=== PATIENT | male | born 1945 | race Caucasian/White ===

== ENCOUNTER 2018-06-21 06:58 | Outpatient (RCR) | payer MEDICARE, BC ==
[~2018-06-21 06:58] MED LIST: ASPIR 8181 MG PO; GLIPIZIDE5 MG PO; KOMBIGLYZE XR1 EAC1 PO; LISINOPRIL10 MG PO; PLAVIX75 MG PO; PRAVACHOL40 MG PO; PROTONIX40 MG PO; TOPROL XL25 MG PO; VERAPAMIL ER240 M1 PO
== END 2018-06-23 ==
LOC: PT 06:58
PROVIDERS: ATTEND Specialist
DX: M75.42 Impingement syndrome of left shoulder (principal); M25.512 Pain in left shoulder; M62.81 Muscle weakness (generalized)

== ENCOUNTER 2018-07-22 07:00 | Outpatient (RCR) | payer MEDICARE, BC | END 2018-07-24 | LOC: PT 07:00 | PROVIDERS: ATTEND Specialist | DX: M75.42 Impingement syndrome of left shoulder (principal); M62.81 Muscle weakness (generalized) | CPT/HCPCS: 97139 ==

== ENCOUNTER → 2018-11-23 | Outpatient (CLI) | payer MEDICARE, BC ==
[~2018-11-23] MED LIST changes: +PROCARDIA XL90 MG PO
[2018-11-23 09:02] LABS: BASOPHILS # (AUTO) 0.1 (0.0-0.1); BASOPHILS % 0.8 % (0.0-1.0); EOSINOPHILS # (AUTO) 0.1 (0.0-0.4); EOSINOPHILS % 1.7 % (0.0-6.0); HEMATOCRIT 41.5 % (38.2-49.6); HEMOGLOBIN 14.6 g/dL (14.0-18.0); LYMPHOCYTES % 13.4 % (18.0-39.1); MEAN CORPUSCULAR HEMOGLOBIN 29.9 pg (28-32); MEAN CORPUSCULAR HGB CONC 35.2 g/dL (31-35); MONOCYTES # (AUTO) 0.7 (0.2-0.8); MONOCYTES % 9.7 % (4.4-11.3); NEUTROPHILS # (AUTO) 5.6 (2.1-6.9); PLATELET COUNT 228 x10e3/uL (140-360); RED BLOOD COUNT 4.88 x10e6/uL (4.3-5.7); RED CELL DISTRIBUTION WIDTH 12.6 % (11.7-14.4)
== END ==
LOC: RAD 08:37
PROVIDERS: ATTEND General Practice
DX: Z01.818 Encounter for other preprocedural examination (principal); Z00.00 Encounter for general adult medical examination without abnormal findings; Z12.5 Encounter for screening for malignant neoplasm of prostate; Z13.6 Encounter for screening for cardiovascular disorders
CPT/HCPCS: 36415; 84152; 85025; 93005

== ENCOUNTER → 2018-12-13 | Day surgery (SDC) | payer MEDICARE, BC ==
[~2018-12-13] MED LIST changes: +FENTANYL CITRATE/PF 100MCG/2 ML INJ ONE; +HYDRALAZINE HCL 20 MG/ML VIAL ONE; +INSULIN REGULAR, HUMAN 100 UNIT/1 ML 3ML VIAL ONE; +MIDAZOLAM HCL 2 MG/2 ML VIAL ONE; +OR PHACO EYE KIT ONE; +PREOP PHACO EYE KIT ONE
[2018-12-13 11:45] VITALS: BP 161/95
== END | disposition home or self-care (01) ==
LOC: OR 08:36
PROVIDERS: ATTEND Ophthalmology
DX: H25.12 Age-related nuclear cataract, left eye (principal); E11.9 Type 2 diabetes mellitus without complications; I10 Essential (primary) hypertension; I25.10 Atherosclerotic heart disease of native coronary artery without angina pectoris; I25.2 Old myocardial infarction; K21.9 Gastro-esophageal reflux disease without esophagitis; K58.9 Irritable bowel syndrome, unspecified; I49.3 Ventricular premature depolarization; I44.0 Atrioventricular block, first degree; Z79.02 Long term (current) use of antithrombotics/antiplatelets; Z79.84 Long term (current) use of oral hypoglycemic drugs; Z95.5 Presence of coronary angioplasty implant and graft; Z87.891 Personal history of nicotine dependence
CPT/HCPCS: 36415; 66984; 82948; J0360; J2250; J3010; J1817; V2632

== ENCOUNTER → 2018-12-27 | Day surgery (SDC) | payer MEDICARE, BC ==
[~2018-12-27] MED LIST changes: -HYDRALAZINE HCL 20 MG/ML VIAL ONE
[2018-12-27 13:15] VITALS: BP 166/84
== END | disposition home or self-care (01) ==
LOC: OR 09:00
PROVIDERS: ATTEND Ophthalmology
DX: H25.11 Age-related nuclear cataract, right eye (principal); E11.9 Type 2 diabetes mellitus without complications; I25.10 Atherosclerotic heart disease of native coronary artery without angina pectoris; I10 Essential (primary) hypertension; Z79.02 Long term (current) use of antithrombotics/antiplatelets; Z79.84 Long term (current) use of oral hypoglycemic drugs; Z87.891 Personal history of nicotine dependence; Z95.5 Presence of coronary angioplasty implant and graft
CPT/HCPCS: 36415; 82948; 66984; J2250; J3010; J1817; V2632